=== PATIENT | female | born 2000 | race African-American/Black ===

== ENCOUNTER 2019-11-02 14:27 | Emergency (ER) | payer MEDICAID ==
[~2019-11-02] VITALS: Ht 162.6 cm; Wt 85.5 kg
[2019-11-02] MEDS ORDERED: ACETAMINOPHEN 500 MG TABLET PO ONE (15:00)
[2019-11-02] MEDS ORDERED: KETOROLAC 30 MG/1 ML IVPush ONE (15:00)
[2019-11-02] MEDS ORDERED: ONDANSETRON 2MG/ML, 2ML IVPush ONE (15:00)
[2019-11-02] MEDS ORDERED: SODIUM CHLORIDE 0.9% 1,000ML IVBOLUS ONE (15:00)
[2019-11-02] MEDS ORDERED: KETOROLAC 30 MG/1 ML ONE (15:18)
[2019-11-02] MEDS ORDERED: ONDANSETRON 2MG/ML, 2ML ONE (15:18)
[2019-11-02] MEDS ORDERED: ACETAMINOPHEN 500 MG TABLET ONE (15:18)
[2019-11-02 15:30] LABS: RAPID INFLUENZA A Negative (Negative); RAPID INFLUENZA B Negative (Negative)
[2019-11-02 15:32] LABS: BASOPHILS # (AUTO) 0.01 x10^3/uL (0-0.1); BASOPHILS % (AUTO) 0 % (0-1); EOSINOPHILS # (AUTO) 0.02 x10^3/uL (0-0.4); EOSINOPHILS % (AUTO) 0 % (1-7); LYMPHOCYTES # (AUTO) 0.66 x10^3/uL (1-3.4); LYMPHOCYTES % (AUTO) 9 % (22-44); MD NO; MEAN CORPUSCULAR HEMOGLOBIN 31.2 pg (27.0-34.8); MEAN CORPUSCULAR VOLUME 91.8 fL (80-100); MEAN PLATELET VOLUME 9.7 fL (7.4-10.4); MONOCYTES # (AUTO) 0.61 x10^3/uL (0.2-0.8); MONOCYTES % (AUTO) 9 % (2-9); NEUTROPHILS # (AUTO) 5.82 x10^3/uL (1.8-6.8); NEUTROPHILS % (AUTO) 82 % (42-75); PLATELET COUNT 227 x10^3/uL (130-400)
[2019-11-02 15:41] LABS: ANION GAP 7 mmol/L (5-15); CALCIUM 9.3 mg/dL (8.5-10.1); CHLORIDE 103 mmol/L (98-107); CREATININE 0.77 mg/dL (0.55-1.02)
--- NOTE | 2019-11-02 16:05 | NUR ---
pa in room for reeval. plan for dc. as
[2019-11-02 16:08] VITALS: BP 107/41
== END 2019-11-02 16:27 | disposition home or self-care (01) ==
LOC: ED 14:58
DX: J45.31 Mild persistent asthma with (acute) exacerbation (principal); B34.9 Viral infection, unspecified; R00.0 Tachycardia, unspecified
CPT/HCPCS: 36415; 71045; 80048; 82040; 83605; 84145; 85025; 87040; 87400; 93005; 96374; 96375; 99285; J1885; J2405; J7030

== ENCOUNTER 2019-11-13 10:17 | Emergency (ER) | payer MEDICAID ==
[~2019-11-13] VITALS: Ht 162.6 cm; Wt 83.0 kg
[2019-11-13 10:27] VITALS: BP 114/73
== END 2019-11-13 10:59 | disposition home or self-care (01) ==
LOC: ED 10:37
DX: J45.909 Unspecified asthma, uncomplicated (principal); R00.0 Tachycardia, unspecified; F17.200 Nicotine dependence, unspecified, uncomplicated
CPT/HCPCS: 99281

== ENCOUNTER 2020-05-27 09:08 | Emergency (ER) | payer MEDICAID ==
[~2020-05-27] VITALS: Ht 162.6 cm; Wt 84.8 kg
[2020-05-27] MEDS ORDERED: LIDOCAINE-MPF 1%, 5ML INFIL ONE (09:30)
[2020-05-27] MEDS ORDERED: LIDOCAINE-MPF 1%, 5ML ONE ×2 (09:38→10:04)
--- NOTE | 2020-05-27 09:50 | NUR ---
ERP AT BEDSIDE FOR I&D
--- NOTE | 2020-05-27 10:10 | NUR ---
PT SITTING UPRIGHT ON GURNEY. NAD. PT DENIES ANY NEEDS AT THIS TIME. CALL LIGHT IN PLACE.
[2020-05-27 10:13] VITALS: BP 102/72
--- NOTE | 2020-05-27 10:25 | NUR ---
[employer] AT BEDSIDE CLEANSING AND DRESSING WOUND
[2020-05-27] MEDS ORDERED: SULFAMETH./TRIMETHOPRIM DS 800MG/160MG TABLET ONE (10:27)
[2020-05-27] MEDS ORDERED: CEPHALEXIN 500 MG CAPSULE ONE (10:27)
[2020-05-27] MEDS ORDERED: CEPHALEXIN 500 MG CAPSULE PO ONE (10:30)
[2020-05-27] MEDS ORDERED: SULFAMETH./TRIMETHOPRIM DS 800MG/160MG TABLET PO ONE (10:30)
--- NOTE | 2020-05-27 10:53 | NUR ---
Patient given discharge instructions and they have confirmed that they understand the instructions. Patient ambulatory with steady gait.
== END 2020-05-27 10:55 | disposition home or self-care (01) ==
LOC: ED 09:57
DX: M79.645 Pain in left finger(s) (principal); L03.012 Cellulitis of left finger; M79.89 Other specified soft tissue disorders; J45.909 Unspecified asthma, uncomplicated
CPT/HCPCS: 10060; 99283